=== PATIENT | male | born 1940 | race Caucasian/White ===

== ENCOUNTER 2018-07-19 09:30 | Inpatient (IN) | payer MEDICARE ==
[~2018-07-19] VITALS: Ht 182.9 cm; Wt 104.0 kg
[2018-07-19 10:09] LABS: BASOPHILS % (AUTO) 0.2 % (0.0-5.0); HEMATOCRIT 42.8 % (42-54); MEAN CORPUSCULAR HEMOGLOBIN 32.8 pg (27.0-33.0); MEAN CORPUSCULAR HGB CONC 33.3 g/dL (32.0-36.0); MEAN CORPUSCULAR VOLUME 98.7 fL (79-99); MONOCYTES % (AUTO) 7.2 % (3.0-13.0); NEUTROPHILS % (AUTO) 86.6 % (40.0-77.0); PLATELET COUNT (AUTO) 259 K/uL (130-400); RED BLOOD CELL COUNT(AUTO) 4.34 MIL/uL (4.50-6.20); RED CELL DISTRIBUTION WIDTH 12.7 % (11.0-15.5); WHITE BLOOD COUNT (AUTO) 23.4 K/uL (4.8-10.8)
[2018-07-19 10:17] LABS: POTASSIUM 4.1 mmol/L (3.5-5.1)
[2018-07-19 10:22] LABS: ALBUMIN 3.4 g/dL (3.5-5.0); BILIRUBIN,TOTAL 1.9 mg/dL (0.2-1.0); TOTAL PROTEIN, SERUM 7.4 g/dL (6.0-8.3)
[2018-07-19] MEDS ORDERED: ONDANSETRON HCL 4 MG/2 ML VIAL ONE (10:22)
[2018-07-19] MEDS ORDERED: MORPHINE SULFATE 4 MG/1ML SYG ONE (10:23)
[2018-07-19] MEDS ORDERED: SODIUM CHLORIDE 0.9% 1000ML 1,000 ML IV ONE ×2 (10:23→14:50)
[2018-07-19] MEDS ORDERED: CEFAZOLIN SODIUM 1 GM VIAL ONE (11:14)
[2018-07-19] MEDS ORDERED: VANCOMYCIN 1.5 GM in SODIUM CHLORIDE 0.9% 250 ML IV SCH (13:15)
[2018-07-19] MEDS ORDERED: COMPOUND IV REFRIGERATED 1 EACH IVSOLN MISC PRN ×2 (13:15→16:00)
[2018-07-19] MEDS: SODIUM CHLORIDE 0.9% 1000ML 1,000 ML IV SCH (13:30)
[2018-07-19] MEDS ORDERED: ACETAMINOPHEN 325 MG TAB PO PRN (15:45)
[2018-07-19] MEDS ORDERED: ONDANSETRON HCL 4 MG/2 ML VIAL IV PRN (15:45)
[2018-07-19] MEDS: TETANUS/DIPHTHERIA TOXOID [ADULT] 0.5 ML VIAL IM SCH (15:45)
[2018-07-19] MEDS ORDERED: MORPHINE SULFATE 2 MG/ML 1ML SYG IV PRN (15:45)
[2018-07-19] MEDS ORDERED: VANCOMYCIN PROTOCOL PER PHARMACY IV PRN (15:45)
[2018-07-19] MEDS ORDERED: WARF3TAB59 PO (15:58)
[2018-07-19] MEDS ORDERED: CYAN250014 PO (15:58)
[2018-07-19] MEDS ORDERED: AMLO10TA7 PO (15:58)
[2018-07-19] MEDS ORDERED: ACET-2123 PO (15:58)
[2018-07-19] MEDS ORDERED: BENA20TA10 PO (15:58)
[2018-07-19] MEDS ORDERED: DIGO250T84 PO (15:58)
[2018-07-19] MEDS ORDERED: METO-408 PO (15:58)
[2018-07-19] MEDS ORDERED: TETANUS/DIPHTHERIA TOXOID [ADULT] 0.5 ML VIAL IM ONE (17:10)
[2018-07-19 17:34] VITALS: BP 134/74
[2018-07-19] MEDS: LEVOFLOXACIN 500 MG/D5W 100 ML 100 ML IV SCH (18:01)
[2018-07-19 20:00] VITALS: BP 143/61
[2018-07-19] MEDS: FAMOTIDINE/PF 20 MG/2 ML VIAL IV SCH (20:32)
[2018-07-19] MEDS: VANCOMYCIN 1.5 GM in SODIUM CHLORIDE 0.9% 250 ML IV SCH (23:12)
[2018-07-20] VITALS (7 sets, daily range): BP systolic 129–163; BP diastolic 52–93
[2018-07-20] MEDS: SODIUM CHLORIDE 0.9% 1000ML 1,000 ML IV SCH ×2 (03:24→10:36)
[2018-07-20 04:51] LABS: HEMATOCRIT 37.3 % (42-54); MEAN CORPUSCULAR HEMOGLOBIN 33.5 pg (27.0-33.0); MEAN CORPUSCULAR HGB CONC 33.7 g/dL (32.0-36.0); MEAN CORPUSCULAR VOLUME 99.3 fL (79-99); PLATELET COUNT (AUTO) 236 K/uL (130-400); RED BLOOD CELL COUNT(AUTO) 3.76 MIL/uL (4.50-6.20); RED CELL DISTRIBUTION WIDTH 12.9 % (11.0-15.5); WHITE BLOOD COUNT (AUTO) 15.7 K/uL (4.8-10.8)
[2018-07-20 05:00] LABS: CREATININE 0.9 mg/dL (0.5-1.5); POTASSIUM 3.7 mmol/L (3.5-5.1)
[2018-07-20] MEDS: TETANUS/DIPHTHERIA TOXOID [ADULT] 0.5 ML VIAL IM SCH (10:15)
[2018-07-20] MEDS: ENOXAPARIN SODIUM 40 MG/0.4 ML SYRINGE SQ SCH (10:36)
[2018-07-20] MEDS: FAMOTIDINE/PF 20 MG/2 ML VIAL IV SCH ×2 (10:36→20:58)
[2018-07-20] MEDS: LEVOFLOXACIN 500 MG/D5W 100 ML 100 ML IV SCH (10:37)
[2018-07-20] MEDS: VANCOMYCIN 1.5 GM in SODIUM CHLORIDE 0.9% 250 ML IV SCH ×2 (11:54→20:58)
--- NOTE | 2018-07-20 16:55 | NUR ---
GEN CHAVEZ, PT ALONE, ENG SPEAKING, AIND OF ADLS, NO DME NO HH NO DAR[facility], KARL HANSON, IN [facility] 09/11; HOME SAFE/ ACCESS, PLAN HOME Addendum: 07/20/18 at 2009 by YANNA TURPIN RN Amended: Links added.
[2018-07-21 03:30] VITALS: BP 164/89
[2018-07-21] MEDS: HYDRALAZINE HCL 20 MG/ML VIAL IV PRN (04:31)
[2018-07-21 04:37] LABS: HEMATOCRIT 37.2 % (42-54); MEAN CORPUSCULAR HEMOGLOBIN 33.7 pg (27.0-33.0); MEAN CORPUSCULAR HGB CONC 34.5 g/dL (32.0-36.0); MEAN CORPUSCULAR VOLUME 97.8 fL (79-99); PLATELET COUNT (AUTO) 220 K/uL (130-400); RED CELL DISTRIBUTION WIDTH 12.9 % (11.0-15.5); WHITE BLOOD COUNT (AUTO) 13.8 K/uL (4.8-10.8)
[2018-07-21 04:46] LABS: ALBUMIN 2.5 g/dL (3.5-5.0); BILIRUBIN,TOTAL 1.1 mg/dL (0.2-1.0); CREATININE 0.8 mg/dL (0.5-1.5); POTASSIUM 3.7 mmol/L (3.5-5.1); TOTAL PROTEIN, SERUM 6.4 g/dL (6.0-8.3)
[2018-07-21] MEDS: LACTULOSE 20 GM/30 ML UDCUP PO SCH (05:03)
[2018-07-21 05:10] VITALS: BP 164/80
[2018-07-21 08:21] VITALS: BP 136/87
[2018-07-21] MEDS: FAMOTIDINE/PF 20 MG/2 ML VIAL IV SCH ×2 (09:24→20:50)
[2018-07-21] MEDS: ENOXAPARIN SODIUM 40 MG/0.4 ML SYRINGE SQ SCH (09:25)
[2018-07-21] MEDS: TETANUS/DIPHTHERIA TOXOID [ADULT] 0.5 ML VIAL IM SCH (10:50)
[2018-07-21] MEDS: VANCOMYCIN 1.5 GM in SODIUM CHLORIDE 0.9% 250 ML IV SCH ×2 (10:52→20:50)
[2018-07-21 16:00] VITALS: BP 166/78
[2018-07-21 19:25] VITALS: BP 138/96
[2018-07-21 23:08] VITALS: BP 157/88
[2018-07-22] MEDS: LACTULOSE 20 GM/30 ML UDCUP PO SCH ×2 (02:30→11:50)
[2018-07-22 03:45] VITALS: BP 159/90
[2018-07-22 04:30] LABS: HEMATOCRIT 36.4 % (42-54); MEAN CORPUSCULAR HEMOGLOBIN 33.6 pg (27.0-33.0); MEAN CORPUSCULAR HGB CONC 34.5 g/dL (32.0-36.0); MEAN CORPUSCULAR VOLUME 97.4 fL (79-99); PLATELET COUNT (AUTO) 244 K/uL (130-400); RED BLOOD CELL COUNT(AUTO) 3.74 MIL/uL (4.50-6.20); RED CELL DISTRIBUTION WIDTH 12.9 % (11.0-15.5); WHITE BLOOD COUNT (AUTO) 12.4 K/uL (4.8-10.8)
[2018-07-22 04:48] LABS: CREATININE 0.8 mg/dL (0.5-1.5); POTASSIUM 3.4 mmol/L (3.5-5.1)
[2018-07-22] MEDS: TETANUS/DIPHTHERIA TOXOID [ADULT] 0.5 ML VIAL IM SCH (07:25)
[2018-07-22] MEDS ORDERED: POTASSIUM CHLORIDE 20 MEQ ERTAB PO SCH ×3 (08:00→12:00)
[2018-07-22] MEDS: METOPROLOL TARTRATE 25 MG TAB PO SCH ×2 (08:14→20:43)
[2018-07-22] MEDS: FAMOTIDINE/PF 20 MG/2 ML VIAL IV SCH ×2 (08:14→20:43)
[2018-07-22] MEDS: AMLODIPINE BESYLATE 5 MG TAB PO SCH (08:15)
[2018-07-22] MEDS: ENOXAPARIN SODIUM 40 MG/0.4 ML SYRINGE SQ SCH (08:16)
[2018-07-22] MEDS: VANCOMYCIN 1.5 GM in SODIUM CHLORIDE 0.9% 250 ML IV SCH ×2 (08:23→20:43)
[2018-07-22] MEDS: BENAZEPRIL HCL 10 MG TABLET PO SCH (08:24)
[2018-07-22 08:29] LABS: INR 1.02 (0.85-1.15); PARTIAL THROMBOPLASTIN TIME 29.2 SEC (26.3-35.5); PROTHROMBIN TIME 10.7 SEC (9.6-11.6)
[2018-07-22] MEDS ORDERED: LACTULOSE 20 GM/30 ML UDCUP PO PRN (08:30)
[2018-07-22] MEDS ORDERED: BENAZEPRIL HCL 10 MG TABLET PO SCH (09:00)
[2018-07-22] MEDS ORDERED: DIGOXIN 250 MCG TABLET PO SCH (09:00)
[2018-07-22] MEDS ORDERED: WARFARIN SODIUM 1 MG TAB PO SCH ×2 (09:00→16:00)
[2018-07-22 09:23] VITALS: BP 145/103
[2018-07-22] MEDS: CEFAZOLIN SODIUM 1 GM VIAL IVP SCH ×2 (11:51→17:26)
[2018-07-22 12:05] VITALS: BP 137/87
[2018-07-22] MEDS ORDERED: WARFARIN SODIUM 5 MG TAB PO SCH (16:00)
[2018-07-22 17:10] VITALS: BP 149/90
[2018-07-22] MEDS: DIGOXIN 250 MCG TABLET PO SCH (17:32)
[2018-07-22 20:17] VITALS: BP 166/95
[2018-07-23] VITALS (7 sets, daily range): BP systolic 132–173; BP diastolic 67–108
[2018-07-23] MEDS: CEFAZOLIN SODIUM 1 GM VIAL IVP SCH ×3 (02:55→18:07)
[2018-07-23] MEDS: HYDRALAZINE HCL 20 MG/ML VIAL IV PRN (04:12)
[2018-07-23 05:32] LABS: HEMATOCRIT 37.6 % (42-54); MEAN CORPUSCULAR HEMOGLOBIN 33.3 pg (27.0-33.0); MEAN CORPUSCULAR VOLUME 98.1 fL (79-99); NUCLEATED RED BLOOD CELLS 0.1 % (0.0-0.19); PLATELET COUNT (AUTO) 286 K/uL (130-400); RED BLOOD CELL COUNT(AUTO) 3.83 MIL/uL (4.50-6.20); RED CELL DISTRIBUTION WIDTH 12.5 % (11.0-15.5); WHITE BLOOD COUNT (AUTO) 11.9 K/uL (4.8-10.8)
[2018-07-23 05:38] LABS: CREATININE 0.8 mg/dL (0.5-1.5); POTASSIUM 3.6 mmol/L (3.5-5.1)
[2018-07-23 05:44] LABS: PARTIAL THROMBOPLASTIN TIME 28.2 SEC (26.3-35.5); PROTHROMBIN TIME 10.5 SEC (9.6-11.6)
[2018-07-23] MEDS: LACTULOSE 20 GM/30 ML UDCUP PO SCH (07:44)
[2018-07-23] MEDS: AMLODIPINE BESYLATE 5 MG TAB PO SCH (09:24)
[2018-07-23] MEDS: FAMOTIDINE/PF 20 MG/2 ML VIAL IV SCH ×2 (09:24→20:54)
[2018-07-23] MEDS: ENOXAPARIN SODIUM 40 MG/0.4 ML SYRINGE SQ SCH (09:24)
[2018-07-23] MEDS: BENAZEPRIL HCL 10 MG TABLET PO SCH (09:25)
[2018-07-23] MEDS: METOPROLOL TARTRATE 25 MG TAB PO SCH ×2 (09:25→20:55)
[2018-07-23] MEDS: VANCOMYCIN 1.5 GM in SODIUM CHLORIDE 0.9% 250 ML IV SCH ×2 (09:36→20:55)
[2018-07-23] MEDS ORDERED: WARFARIN SODIUM 5 MG TAB PO SCH (15:15)
[2018-07-23] MEDS: DIGOXIN 250 MCG TABLET PO SCH (17:16)
--- NOTE | 2018-07-23 18:31 | NUR ---
bedside report given to Carmen VERMA and questions been address. patient was transferred in stable condition.
[2018-07-24] MEDS: CEFAZOLIN SODIUM 1 GM VIAL IVP SCH ×3 (02:12→17:32)
[2018-07-24 03:52] VITALS: BP 156/85
[2018-07-24 06:22] LABS: MEAN CORPUSCULAR HEMOGLOBIN 33.1 pg (27.0-33.0); MEAN CORPUSCULAR HGB CONC 33.9 g/dL (32.0-36.0); MEAN CORPUSCULAR VOLUME 97.4 fL (79-99); PLATELET COUNT (AUTO) 315 K/uL (130-400); RED CELL DISTRIBUTION WIDTH 12.6 % (11.0-15.5); WHITE BLOOD COUNT (AUTO) 11.9 K/uL (4.8-10.8)
[2018-07-24 06:33] LABS: CREATININE 0.8 mg/dL (0.5-1.5); POTASSIUM 3.4 mmol/L (3.5-5.1)
[2018-07-24 06:38] LABS: INR 1.09 (0.85-1.15); PARTIAL THROMBOPLASTIN TIME 28.4 SEC (26.3-35.5); PROTHROMBIN TIME 11.4 SEC (9.6-11.6)
[2018-07-24 07:00] VITALS: BP 148/75
[2018-07-24 11:00] VITALS: BP 138/87
[2018-07-24] MEDS: AMLODIPINE BESYLATE 5 MG TAB PO SCH (11:00)
[2018-07-24] MEDS: FAMOTIDINE/PF 20 MG/2 ML VIAL IV SCH ×2 (11:00→21:40)
[2018-07-24] MEDS: BENAZEPRIL HCL 10 MG TABLET PO SCH (11:00)
[2018-07-24] MEDS: METOPROLOL TARTRATE 25 MG TAB PO SCH ×2 (11:01→21:40)
[2018-07-24] MEDS: ENOXAPARIN SODIUM 40 MG/0.4 ML SYRINGE SQ SCH (11:02)
[2018-07-24] MEDS: VANCOMYCIN 1.5 GM in SODIUM CHLORIDE 0.9% 250 ML IV SCH ×2 (12:23→21:41)
[2018-07-24 16:00] VITALS: BP 153/87
[2018-07-24] MEDS: DIGOXIN 250 MCG TABLET PO SCH ×2 (16:21→17:21)
[2018-07-24] MEDS ORDERED: WARFARIN SODIUM 5 MG TAB PO SCH (17:15)
--- NOTE | 2018-07-24 18:28 | NUR ---
cm note discussed dc plan with dr Ayala, states will have ID MD decide on antibiotics, and if still needed then referral to [facility], if not dc plan to home
[2018-07-24 20:00] VITALS: BP 160/79
[2018-07-25 00:04] VITALS: BP 148/79
--- NOTE | 2018-07-25 00:44 | NUR ---
ACTIVITY Pt ambulated to the bathroom using a walker,rizwan well.
[2018-07-25] MEDS: CEFAZOLIN SODIUM 1 GM VIAL IVP SCH ×2 (02:37→09:24)
[2018-07-25 04:00] VITALS: BP 160/93
[2018-07-25 04:06] VITALS: BP 156/97
[2018-07-25 06:40] LABS: HEMATOCRIT 40.9 % (42-54); MEAN CORPUSCULAR HEMOGLOBIN 33.9 pg (27.0-33.0); MEAN CORPUSCULAR HGB CONC 34.3 g/dL (32.0-36.0); MEAN CORPUSCULAR VOLUME 98.7 fL (79-99); PLATELET COUNT (AUTO) 324 K/uL (130-400); RED BLOOD CELL COUNT(AUTO) 4.14 MIL/uL (4.50-6.20); RED CELL DISTRIBUTION WIDTH 12.7 % (11.0-15.5); WHITE BLOOD COUNT (AUTO) 10.5 K/uL (4.8-10.8)
[2018-07-25 06:54] LABS: CREATININE 0.9 mg/dL (0.5-1.5); POTASSIUM 3.4 mmol/L (3.5-5.1)
[2018-07-25 07:06] LABS: INR 1.18 (0.85-1.15); PROTHROMBIN TIME 12.3 SEC (9.6-11.6)
[2018-07-25 08:00] VITALS: BP 128/67
[2018-07-25] MEDS: FAMOTIDINE/PF 20 MG/2 ML VIAL IV SCH (09:24)
[2018-07-25] MEDS: VANCOMYCIN 1.5 GM in SODIUM CHLORIDE 0.9% 250 ML IV SCH (09:24)
[2018-07-25] MEDS: METOPROLOL TARTRATE 25 MG TAB PO SCH (09:25)
[2018-07-25] MEDS: BENAZEPRIL HCL 10 MG TABLET PO SCH (09:27)
[2018-07-25] MEDS: AMLODIPINE BESYLATE 5 MG TAB PO SCH (09:27)
[2018-07-25] MEDS: ENOXAPARIN SODIUM 40 MG/0.4 ML SYRINGE SQ SCH (09:33)
[2018-07-25 10:21] LABS: INR 1.22 (0.85-1.15); PARTIAL THROMBOPLASTIN TIME 28.5 SEC (26.3-35.5); PROTHROMBIN TIME 12.8 SEC (9.6-11.6)
[2018-07-25 11:00] VITALS: BP 146/76
== END 2018-07-25 14:23 | disposition home or self-care (01) | DRG 872 ==
LOC: EDH 09:30 → EDHIP 13:08 → 4CH 16:58 → 3BH 07-23 18:24
PROVIDERS: ADMIT Hospitalist; ATTEND Hospitalist
DX: A41.9 Sepsis, unspecified organism (principal); L03.115 Cellulitis of right lower limb; E44.0 Moderate protein-calorie malnutrition; C41.9 Malignant neoplasm of bone and articular cartilage, unspecified; E66.9 Obesity, unspecified; C61 Malignant neoplasm of prostate; I48.91 Unspecified atrial fibrillation; I10 Essential (primary) hypertension; G62.9 Polyneuropathy, unspecified; E87.6 Hypokalemia; Z96.611 Presence of right artificial shoulder joint; Z85.828 Personal history of other malignant neoplasm of skin; Z68.31 Body mass index [BMI] 31.0-31.9, adult; Z83.3 Family history of diabetes mellitus; Z88.1 Allergy status to other antibiotic agents; Z90.79 Acquired absence of other genital organ(s)
CPT/HCPCS: 36415; 73590; 73700; 76770; 80048; 80053; 80202; 83605; 85025; 85027; 85610; 85730; 87040; 90714; 93970; 97039; A4218; G0378; J0360; J0690; J1650; J1956; J2270; J2405; J3370; J3490; J7030

== ENCOUNTER 2019-05-15 10:42 | Observation (INO) | payer MEDICARE ==
[~2019-05-15] VITALS: Ht 182.9 cm; Wt 92.2 kg
[~2019-05-15 10:42] MED LIST: ACET-2123 PO; AMLO10TA7 PO; BENA20TA10 PO; CYAN250014 PO; DIGO250T73 PO; METO-408 PO; WARF3TAB59 PO
[2019-05-15] MEDS ORDERED: FENTANYL CITRATE PF 50 MCG/1 ML 2ML VIAL ONE (11:19)
[2019-05-15] MEDS ORDERED: MORPHINE SULFATE 4 MG/1ML SYG ONE (14:59)
[2019-05-15 15:14] LABS: BASOPHILS % (AUTO) 0.9 % (0.0-5.0); EOSINOPHILS % (AUTO) 1.2 % (0.0-8.0); HEMATOCRIT 35.8 % (42-54); MEAN CORPUSCULAR HEMOGLOBIN 29.8 pg (27.0-33.0); MEAN CORPUSCULAR HGB CONC 32.6 g/dL (32.0-36.0); MEAN CORPUSCULAR VOLUME 91.3 fL (79-99); MONOCYTES % (AUTO) 13.3 % (3.0-13.0); NEUTROPHILS % (AUTO) 69.6 % (40.0-77.0); PLATELET COUNT (AUTO) 428 K/uL (130-400); RED BLOOD CELL COUNT(AUTO) 3.92 MIL/uL (4.50-6.20); RED CELL DISTRIBUTION WIDTH 15.3 % (11.0-15.5); WHITE BLOOD COUNT (AUTO) 11.9 K/uL (4.8-10.8)
[2019-05-15 15:18] LABS: CREATININE 0.7 mg/dL (0.5-1.5); POTASSIUM 3.9 mmol/L (3.5-5.1)
[2019-05-15 15:22] LABS: ALBUMIN 2.3 g/dL (3.5-5.0); BILIRUBIN,TOTAL 0.8 mg/dL (0.2-1.0); TOTAL PROTEIN, SERUM 6.8 g/dL (6.0-8.3)
[2019-05-15 15:32] LABS: INR 1.08 (0.85-1.15); PARTIAL THROMBOPLASTIN TIME 26.2 SEC (26.3-35.5); PROTHROMBIN TIME 11.3 SEC (9.6-11.6)
--- NOTE | 2019-05-15 16:45 | NUR ---
U/S GD RT SHOULDER ASPIRATION PROCEDURE PERFORMED BY DR Anay AL. PUNCTURE SITE RT SHOULDER AND PATIENT TOLERATED PROCEDURE WELL. SPECIMEN COLLECTED AND SENT TO LAB. END OF PROCEDURE AT 1625. ASPIRATION NEEDLE REMOVED AND DRESSING APPLIED. NO BLEEDING NOTED. REPORT GIVEN TO Tray REYES RN AND PATIENT TRANSPORTED TO ED 14 VIA STRETCHER. AAO X3 WITH NO C/O DISCOMFORT.
[2019-05-15 19:28] VITALS: BP 156/81
--- NOTE | 2019-05-15 19:28 | NUR ---
Admission note: Admitted to floor via stretcher. AOX4. Positioned in bed comfortably. VS checked and recorded. Assessment done. ( See CPOE flow chart for full assessment). Oriented to room and use of call light. Policies and procedures explained. Verbalized understanding. Plan of care initiated. Dressing to right shoulder clean , dry and intact. Home meds listed. Monitored and observed for any unusualities. Denies feeling of discomfort at this time. No apparent distress noted. Cared for.
[2019-05-15] MEDS ORDERED: PRED5TAB PO (20:29)
[2019-05-15] MEDS ORDERED: TRAM50TA4 PO (20:29)
[2019-05-15] MEDS ORDERED: ABIR250T2 PO (20:29)
[2019-05-15] MEDS ORDERED: AMLO5TAB9 PO (20:29)
[2019-05-15] MEDS ORDERED: ONDANSETRON HCL 4 MG/2 ML VIAL IVP PRN (21:00)
[2019-05-15] MEDS ORDERED: SODIUM CHLORIDE 0.9% 1000ML 1,000 ML IV SCH (21:00)
[2019-05-16] VITALS (7 sets, daily range): BP systolic 127–154; BP diastolic 66–88
--- NOTE | 2019-05-16 08:20 | NUR ---
Patient states that Dr Oates is his doctor. He wants to know why he's been seen by Dr Amaya here in the hospital.
--- NOTE | 2019-05-16 13:35 | NUR ---
DCP CM met with pt discussed dc plans. Pt is independent prior to admission, lives at home with spouse, jeanine goldberg. Denies any other equipments/services. Feels safe to go back home, still drives, spouse able to assist with transportation and needs as necessary. DC plan to home once stable. CM to cont to follow up. Addendum: 05/16/19 at 1336 by VARGAS MCNEAL LVN CM Amended: Links added.
[2019-05-16] MEDS: MORPHINE SULFATE 2 MG/ML 1ML SYG IVP PRN (17:15)
[2019-05-17] VITALS: BP 134/82
[2019-05-17 03:30] VITALS: BP 142/85
[2019-05-17 08:00] VITALS: BP 111/65
[2019-05-17] MEDS: MORPHINE SULFATE 2 MG/ML 1ML SYG IVP PRN (08:17)
[2019-05-17 11:52] VITALS: BP 115/66
== END 2019-05-17 15:10 | disposition home or self-care (01) ==
LOC: EDH 10:42 → EDHIP 15:00 → 3BH 18:33
PROVIDERS: ADMIT Internal Medicine; ATTEND Internal Medicine
DX: M25.511 Pain in right shoulder (principal); C79.51 Secondary malignant neoplasm of bone; R22.31 Localized swelling, mass and lump, right upper limb; I11.0 Hypertensive heart disease with heart failure; I50.9 Heart failure, unspecified; I48.91 Unspecified atrial fibrillation; Z85.46 Personal history of malignant neoplasm of prostate; Z85.831 Personal history of malignant neoplasm of soft tissue; Z90.79 Acquired absence of other genital organ(s); Z79.51 Long term (current) use of inhaled steroids; Z79.01 Long term (current) use of anticoagulants; Z79.899 Other long term (current) drug therapy; Z88.0 Allergy status to penicillin; Z85.828 Personal history of other malignant neoplasm of skin
CPT/HCPCS: 10005; 36415; 80053; 85025; 85610; 85730; 87070; 87076; 87205; 88108; 93971; 96374; 96376; 99284; A4215; G0378 ×48; J2270; J3010; 76942; 87071